=== PATIENT | male | born 1960 ===

== ENCOUNTER 2017-02-02 18:57 | Emergency (ER) | payer BC ==
[2017-02-02] MEDS ORDERED: Aspirin Low Dose CHEW TAB* 81 MG PO ONE (19:55)
--- NOTE | 2017-02-02 20:19 | RAD ---
INDICATION: Nausea. COMPARISON: There are no prior studies available for comparison. TECHNIQUE: A portable view of the chest was obtained. FINDINGS: Cardiac and mediastinal contours appear to be within normal limits. The lungs are underinflated. There is a small infiltrate at the left lung base suggestive of atelectasis less likely pneumonia. No pleural effusion is seen. IMPRESSION: EXPIRATORY EXAM, SMALL LEFT BASILAR INFILTRATE MOST CONSISTENT WITH ATELECTASIS LESS LIKELY PNEUMONIA.
[2017-02-02 22:24] LABS: Albumin 4.2 g/dL (3.2-5.2); BUN/Creatinine Ratio 12.2 (8-20); Calcium 9.6 mg/dL (8.6-10.3); EGFR Non-African American 43.5 (>60); Globulin 3.1 g/dL (2-4); Potassium 4.1 mmol/L (3.5-5.0); Total Bilirubin 0.8 mg/dL (0.2-1.0); Total Protein 7.3 g/dL (6.4-8.9)
[2017-02-02 22:27] LABS: Troponin I 0.01 ng/mL (<0.04)
[2017-02-02] MEDS ORDERED: amLODIPine TAB* 5 MG PO ONE (22:30)
[2017-02-02 22:36] LABS: Hematocrit 45 % (42-52); Hemoglobin 15.4 g/dl (14.0-18.0); Mean Corpuscular HGB Conc 34 g/dl (31-36); Mean Corpuscular Hemoglobin 28 pg (27-31); Mean Corpuscular Volume 83 fL (80-94); Mean Platelet Volume 7 um3 (7.4-10.4); Red Blood Count 5.44 10^6/ul (4.0-5.4); Red Cell Distribution Width 14 % (10.5-15)
--- NOTE | 2017-02-02 22:39 | ED ---
Chavez, DoctorFrancy scribed for Lamar Reyes MD on 02/02/17 at 2011 . Hypertension - HPI Summary HPI Summary: 56 year old male arrived to [facility] with HTN and nausea. He reports that his blood pressure has been high for the past three weeks, and began to have symptoms of nausea today, which have since resolved. His initial blood pressure reading three weeks ago was around 177, and has since remained at or near that level. Pt denies any CP, SOB, or vomiting. In the past three weeks he has significantly reduced his intake of caffeine. He has a FHx of HTN but no other pertinent medical problems and no personal PMHx of HTN. His PCP is Dr. Thrasher; he has an appointment with him coming up soon. - History of Current Complaint Chief Complaint: EDNauseaVomitDiarrh Stated Complaint: HIGH BLOOD PRESSURE Time Seen by Provider: 02/02/17 19:55 Hx Obtained From: Patient Onset/Duration: Started Days Ago, Still Present Timing: Constant - Allergies/Home Medications Allergies/Adverse Reactions: Allergies Allergy/AdvReac Type Severity Reaction Status Date / Time No Known Allergies Allergy Verified 02/02/17 19:56 PMH/Surg Hx/FS Hx/Imm Hx Endocrine/Hematology History: Denies: Hx Diabetes Cardiovascular History: Denies: Hx Hypercholesterolemia, Hx Myocardial Infarction Infectious Disease History: No Infectious Disease History: Denies: Traveled Outside the [place] in Last 30 Days - Family History Known Family History: Positive: Hypertension - Social History Occupation: Employed Full-time Lives: With Family - with Substance Use Type: Reports: None Hx Tobacco Use: No Review of Systems Negative: Fever Positive: Other - high blood pressure. Negative: Chest Pain Negative: Shortness Of Breath Positive: Nausea. Negative: Vomiting All Other Systems Reviewed And Are Negative: Yes Physical Exam Triage Information Reviewed: Yes Vital Signs On Initial Exam: Initial Vitals Temp Pulse Resp BP Pulse Ox 97.5 F 87 20 180/107 97 02/02/17 19:19 02/02/17 19:19 02/02/17 19:19 02/02/17 19:19 02/02/17 19:19 Vital Signs Reviewed: Yes Appearance: Positive: Well-Appearing, No Pain Distress Skin: Positive: Warm, Skin Color Reflects Adequate Perfusion, Dry Eyes: Positive: EOMI, MANUEL ENT: Positive: Pharynx normal, TMs normal Neck: Positive: Supple, Nontender Respiratory/Lung Sounds: Positive: Clear to Auscultation, Breath Sounds Present. Negative: Rales, Rhonchi, Wheezes Cardiovascular: Positive: RRR. Negative: Murmur, Rub Abdomen Description: Positive: Nontender, Soft. Negative: Distended, Guarding Bowel Sounds: Positive: Present Musculoskeletal: Positive: Strength/ROM Intact. Negative: Edema Left, Edema Right Neurological: Positive: Sensory/Motor Intact, Alert, Oriented to Person Place, Time, CN Intact II-III Psychiatric: Positive: Affect/Mood Appropriate Diagnostics - Vital Signs Vital Signs Temp Pulse Resp BP Pulse Ox 02/02/17 19:24 97.5 F 87 20 180/107 97 02/02/17 19:19 97.5 F 87 20 180/107 97 - Laboratory Lab Results: Lab Results 02/02/17 02/02/17 Range/Units 22:00 22:00 Sodium 137 (133-145) mmol/L Potassium 4.1 (3.5-5.0) mmol/L Chloride 103 (101-111) mmol/L Carbon Dioxide 28 (22-32) mmol/L Anion Gap 6 (2-11) mmol/L BUN 20 (6-24) mg/dL Creatinine 1.64 H (0.67-1.17) mg/dL Est GFR ( Amer) 56.0 (>60) Est GFR (Non-Af Amer) 43.5 (>60) BUN/Creatinine Ratio 12.2 (8-20) Glucose 115 H (70-100) mg/dL Lactic Acid 0.8 (0.5-2.0) mmol/L Calcium 9.6 (8.6-10.3) mg/dL Total Bilirubin 0.80 (0.2-1.0) mg/dL AST 27 (13-39) U/L ALT 37 (7-52) U/L Alkaline Phosphatase 43 (34-104) U/L Troponin I 0.01 (<0.04) ng/mL Total Protein 7.3 (6.4-8.9) g/dL Albumin 4.2 (3.2-5.2) g/dL Globulin 3.1 (2-4) g/dL Albumin/Globulin Ratio 1.4 (1-3) Result Diagrams: 02/02/17 22:00 02/02/17 22:00 Lab Statement: Any lab studies that have been ordered have been reviewed, and results considered in the medical decision making process. - Radiology CXR Radiology Interpretation Completed By: Radiologist - IMPRESSION: EXPIRATORY EXAM, SMALL LEFT BASILAR INFILTRATE MOST CONSISTENT WITH ATELECTASIS LESS LIKELY PNEUMONIA. - EKG 20:50 Cardiac Rate: NL - [address] Segment: Normal Ectopy: None EKG Interpretation: no LVH Re-Evaluation - Re-Evaluation First Eval Re-Evaluation Time: 20:48 Change: Unchanged Comment: Discussed lab/imaging results with pt and potential course of treatment Hypertension Course/Dx - Course Course Of Treatment: pt with hypertension here no symptoms now, he did have nausea after riding 10 miles in the sun today without eating lunch but denies sob, or cp and his symptoms seem more related to the exertion than anything else. He does have mild renal insufficiency which is likely related to his muscle mass and he describes that he has been told his creatinine is high. His resting hr is in the 60's which makes giving a beta ciro not a great choice, so upon the recommendation of the hospitalist he will be receiving low dose amlodipine. He has followup with Dr. Thrasher on - Diagnoses Provider Diagnoses: Hypertension Discharge - Discharge Plan Condition: Stable Disposition: HOME Prescriptions: amLODIPine TAB* [Norvasc 5 mg TAB*] 2.5 mg PO DAILY #14 tab Patient Education Materials: Hypertension (ED) Referrals: Rachid Thrasher MD [Primary Care Provider] - The documentation as recorded by the Doctor olivarez Tahera accurately reflects the service I personally performed and the decisions made by me, Lamar Reyes MD.
[2017-02-02 22:54] VITALS: BP 169/103
== END 2017-02-02 22:52 | disposition home or self-care (01) ==
LOC: ED 18:57
DX: I10 Essential (primary) hypertension (principal)
CPT/HCPCS: 36415; 71010; 80053; 83605; 84484; 85025; 93005; 99283; A9270-GY